=== PATIENT | male | born 1985 | race Two or more races ===

== ENCOUNTER → 2024-01-27 | Outpatient (CLI) | payer OTHER ==
[2024-01-27 11:16] LABS: Urine Bacteria None Seen /hpf (None Seen)
[2024-01-27 11:38] LABS: Basophils # (auto) 0.1 10 ^3/uL (0-0.2); Basophils % (auto) 0.8 % (0.0-2.0); Eosinophils # (auto) 0.3 10 ^3/uL (0-0.8); Eosinophils % (auto) 3.9 % (0.0-7.0); Hematocrit 45.5 % (41.0-53.0); Hemoglobin 15.5 g/dL (13.5-17.5); Lymphocytes % (auto) 34.4 % (10.0-50.0); Mean Corpuscular Hemoglobin 30.9 pg (28.0-32.0); Mean Corpuscular Hgb Conc. 34.1 g/dL (32.0-36.0); Mean Corpuscular Volume 90.5 fL (80.0-100.0); Monocytes # (auto) 0.7 10 ^3/uL (0-1.3); Monocytes % (auto) 8.2 % (0.0-12.0); Neutrophils # (auto) 4.6 10 ^3/uL (1.6-8.6); Neutrophils % (auto) 52.7 % (37.0-80.0); Red Blood Cells 5.02 10^6/uL (4.5-5.90); Red Cell Distribution Width 13.4 % (11.8-14.3); Urine Blood Negative /uL (Negative); Urine Clarity Clear (Clear); Urine Color Light-Yellow (Yellow); Urine Protein, UAD Negative (Negative); Urine Specific Gravity 1.026 (1.001-1.035); Urine Urobilinogen Normal (Negative); Urine WBC <1 /hpf (0 - 3); White Blood Cell 8.8 10^3/uL (4.4-10.8)
[2024-01-27 11:57] LABS: % Iron Saturation 24.8 % (20-55)
[2024-01-27 11:58] LABS: Alanine Aminotransferase 77 U/L (7-40); Albumin 4.5 g/dL (3.2-4.8); Alkaline Phosphatase 130 U/L (46-116); Anion Gap 2 (5-15); Aspartate Aminotransferase 28 U/L (13-40); BUN/Creatinine Ratio 17.5 (10.0-20.0); Bilirubin, Total 0.7 mg/dL (0.2-1.0); Blood Urea Nitrogen 17 mg/dL (9-23); Calcium 9.3 mg/dL (8.5-10.1); Carbon Dioxide 30 mmol/L (20-30); Chloride 107 mmol/L (98-107); Cholesterol 188 mg/dL (< 200); Glucose 103 mg/dL (74-106); HDL Cholesterol 36 mg/dL (40-59); LDL Cholesterol 141 mg/dL (< 100); Potassium 4.4 mmol/L (3.5-5.1); Sodium 139 mmol/L (136-145); Total Protein 7.5 g/dL (5.7-8.2); Triglycerides 145 mg/dL (< 150)
[2024-01-27 12:27] LABS: Uric Acid 8.2 mg/dL (3.7-9.2)
== END | disposition home or self-care (01) ==
LOC: LAB 11:03
PROVIDERS: ATTEND Student in an Organized Health Care Education/Training Program
DX: E78.2 Mixed hyperlipidemia (principal); R79.89 Other specified abnormal findings of blood chemistry; M10.9 Gout, unspecified
CPT/HCPCS: 36415; 80053; 80061; 81001; 82105; 82728; 83036; 83540; 83550; 84550; 85025

== ENCOUNTER → 2025-05-24 | Outpatient (CLI) | payer OTHER ==
[2025-05-24 11:43] LABS: Hematocrit 44.8 % (41.0-53.0); Hemoglobin 15.4 g/dL (13.5-17.5); Mean Corpuscular Hemoglobin 31.0 pg (28.0-32.0); Mean Corpuscular Volume 89.9 fL (80.0-100.0); Nucleated Red Blood Cells % 0.1 %
[2025-05-24 11:46] LABS: Urine Protein, UAD Negative (Negative)
[2025-05-24 12:23] LABS: Albumin 4.5 g/dL (3.2-4.8); Anion Gap 10 (5-15); BUN/Creatinine Ratio 8.6 (10.0-20.0); Bilirubin, Total 0.8 mg/dL (0.2-1.0); Blood Urea Nitrogen 10 mg/dL (9-23); Calcium 9.4 mg/dL (8.7-10.4); Carbon Dioxide 27 mmol/L (20-31); Chloride 105 mmol/L (98-107); Glucose 97 mg/dL (74-106); Potassium 4.9 mmol/L (3.5-5.1); Sodium 142 mmol/L (136-145); Total Protein 7.6 g/dL (5.7-8.2); Uric Acid 7.9 mg/dL (3.7-9.2)
[2025-05-24 12:24] LABS: Alanine Aminotransferase 58 U/L (7-40); Alkaline Phosphatase 143 U/L (46-116)
[2025-05-24 12:32] LABS: Cholesterol 187 mg/dL (< 200)
[2025-05-24 12:33] LABS: HDL Cholesterol 40 mg/dL (40-59); Triglycerides 173 mg/dL (< 150)
== END | disposition home or self-care (01) ==
LOC: LAB 11:11
PROVIDERS: ATTEND Nurse Practitioner Family
DX: E78.5 Hyperlipidemia, unspecified (principal); E55.9 Vitamin D deficiency, unspecified; M10.9 Gout, unspecified; Z79.899 Other long term (current) drug therapy
CPT/HCPCS: 36415; 80053; 80061; 81001; 82306; 84443; 84550; 85025